=== PATIENT | female | born 1980 | race Caucasian/White ===

== ENCOUNTER → 2022-10-29 | Outpatient (CLI) | payer OTHER ==
[2022-10-29 14:42] VITALS: BP 119/85; PULSE 87; TEMP 98.4; BMI 41.1
--- NOTE | 2022-10-29 15:19 | P.HPBAR ---
Bariatric H&P - History & Physicial H&P Date: 10/29/22 History & Physicial: Visit/CC: new patient Patient initial contact: Initial weight: Initial weight in pounds: Height: 5 ft 7 in Initial BMI: Last weight: Current weight: 119.023 kg Current weight in pounds: 262.40 Current BMI: 41.1 Ward body weight (based on NIH guidelines): 61.235 kg Excess body weight loss: The patient is a 42 year-old F who presents for Bariatric Assessment. Looking into the gastric bypass. BLoodwork. She does smoke. She is getting the patches. Needs urine nicotine testing. SHe has meridian. SHe has diabetes and sever reflux. Smloking. Corhns disase or colitis. She did meet her britvaleria family. Investigagte for reflux with upper scope. She has sleep apnea and needs testing. Chest xray and needs sleep apnea assessment. She did not get asessment. Needs labs. Risks fo surgery reviewed. SHe is adopted. She has chronic pain. DJD. She sees a pain specialits. Past Medical History Past Medical History: Asthma, Cancer, GERD/Reflux, Hyperlipidemia Additional Past Medical History / Comment(s): fibromyalgia, DDD, IBS, "pre- diabetic", basal cell ca, no meds for cholesterol History of Any Multi-Drug Resistant Organisms: None Reported Past Surgical History: Section, Cholecystectomy, Hysterectomy Additional Past Surgical History / Comment(s): sinus surgery, D&C Past Anesthesia/Blood Transfusion Reactions: Postoperative Nausea & Vomiting (PONV) Additional Past Anesthesia/Blood Transfusion Reaction / Comm: PONV with first surgery age 12, no problems since Past Psychological History: Anxiety, Bipolar, Depression Smoking Status: Current every day smoker Past Alcohol Use History: Occasional Past Drug Use History: None Reported Surgical - Exam Vital Signs Temp Pulse BP 98.4 F 87 119/85 10/29/22 14:31 10/29/22 14:31 10/29/22 14:31 Bariatric Checklist Checklist: Plan: Checklist: EGD: 1. Hiatal hernia: 2. H. Pylori: HgbA1c: Vitamin D: Smoking: Former smoker Primary care physician referral: Kaur Peña NP Psychiatry clearance: Cardiology clearance: Sleep study: Diet journal: VTE risk score: VTE risk level: Rehab needs at discharge:
== END ==
LOC: BARWHC3 14:00
PROVIDERS: ATTEND Surgery Plastic and Reconstructive Surgery
DX: Z53.9 Procedure and treatment not carried out, unspecified reason (principal)
CPT/HCPCS: 99202

== ENCOUNTER → 2022-10-30 | Outpatient (CLI) | payer OTHER ==
[2022-10-30 17:14] LABS: INR 0.9 (<1.2); Partial Thromboplastin Time 25.1 sec (22.0-30.0); Prothrombin Time 9.7 sec (9.0-12.0)
[2022-10-31 01:49] LABS: HCT 45.4 % (37.2-46.3); MCH 29.9 pg (27.0-32.0); MCV 90.4 FL (80.0-97.0); NRBC Per 100 WBC 0 X 10*3/uL (0.00-0.01); Platelet Count 305 X 10*3/uL (140-440); RBC 5.02 X 10*6/uL (4.10-5.20); RDW 14.3 % (11.5-14.5); WBC 10.47 X 10*3/uL (4.50-10.00)
[2022-10-31 02:29] LABS: Prealbumin 24.9 mg/dL (18.0-42.0)
[2022-10-31 02:51] LABS: % Iron Saturation 30.37 (12.00-45.00); ALT 29 U/L (8-44); AST 26 U/L (13-35); Albumin 4.2 d/dL (3.8-4.9); Albumin/Globulin Ratio 1.91 Ratio (1.60-3.17); Alkaline Phosphatase 66 U/L (41-126); Calcium 9.8 mg/dL (8.7-10.3); Carbon Dioxide 24.8 mmol/L (21.6-31.8); Chloride 100 mmol/L (96-109); Chol/HDL Ratio 6.19 Ratio; Ferritin 54.5 ng/mL (10.0-291.0); Globulin 2.2 d/dL (1.6-3.3); Glucose 100 mg/dL (70-110); Iron 116 UG/DL (50-170); LDL Cholesterol,Calculated 100.5 mg/dL (0.0-131.0); Phosphorus 4.2 mg/dL (2.4-5.1); Potassium 4.4 mmol/L (3.5-5.5); Sodium 137 mmol/L (135-145); Total Bilirubin 0.4 mg/dL (0.3-1.2); Total Iron Binding Capacity 382 UG/DL (228-460); Total Protein 6.4 d/dL (6.2-8.2)
== END | disposition home or self-care (01) ==
LOC: LABWHC1 15:01
PROVIDERS: ATTEND Surgery Plastic and Reconstructive Surgery
DX: E66.01 Morbid (severe) obesity due to excess calories (principal); E89.1 Postprocedural hypoinsulinemia; D50.8 Other iron deficiency anemias; K91.2 Postsurgical malabsorption, not elsewhere classified; E44.0 Moderate protein-calorie malnutrition; E44.1 Mild protein-calorie malnutrition; E45 Retarded development following protein-calorie malnutrition; E46 Unspecified protein-calorie malnutrition; E55.9 Vitamin D deficiency, unspecified; K74.1 Hepatic sclerosis; N19 Unspecified kidney failure; T56.894A Toxic effect of other metals, undetermined, initial encounter; K50.90 Crohn's disease, unspecified, without complications; Z71.51 Drug abuse counseling and surveillance of drug abuser
CPT/HCPCS: 84255; 84134; 84425; 80061; 80053; 82607; 82728; 82525; 82746; 83540; 83550; 83735; 84100; 84443; 84590; 84630; 85027; 85610; 85730; 82306; 83970; 83036; 80307; 93005; 36415; G0480; 80323

== ENCOUNTER → 2022-12-12 | Outpatient (CLI) | payer OTHER ==
[2022-12-16 11:18] LABS: Vit B1(Thiamine) 70 ug/L (38-122)
== END | disposition home or self-care (01) ==
LOC: LABWHC1 16:10
PROVIDERS: ATTEND Surgery Plastic and Reconstructive Surgery
DX: E66.01 Morbid (severe) obesity due to excess calories (principal); K74.1 Hepatic sclerosis; N19 Unspecified kidney failure; T56.894A Toxic effect of other metals, undetermined, initial encounter; K50.90 Crohn's disease, unspecified, without complications; K90.9 Intestinal malabsorption, unspecified
CPT/HCPCS: 36415; 82525; 84255; 84425; 84590; 84630

== ENCOUNTER 2023-01-12 07:20 | Day surgery (SDC) | payer OTHER ==
[2023-01-09 08:48] VITALS: BMI 40.1
--- NOTE | 2023-01-12 06:46 | P.GSHP ---
History of Present Illness H&P Date: 01/12/23 CHIEF COMPLAINT: GERD HISTORY OF PRESENT ILLNESS: The patient is a 42-year-old female who presents reports gastroesophageal reflux disease. Upper endoscopy was offered for further evaluation and management. PAST MEDICAL HISTORY: Please see list. PAST SURGICAL HISTORY: Please see list. MEDICATIONS: Please see list. ALLERGIES: Please see list. SOCIAL HISTORY: No illicit drug use FAMILY HISTORY: No reports of Crohn disease or ulcerative colitis. REVIEW OF ORGAN SYSTEMS: CONSTITUTIONAL: No reports of fevers or chills. GI: Denies any blood in stools or constipation. PHYSICAL EXAM: VITAL SIGNS: Stable GENERAL: Well-developed and pleasant in no acute distress. HEENT: No scleral icterus. Extraocular movements grossly intact. Moist buccal mucosa. NECK: Supple without lymphadenopathy. CHEST: Unlabored respirations. Equal bilateral excursions. CARDIOVASCULAR: Regular rate and rhythm. Distal 2+ pulses. ABDOMEN: Soft, nondistended. MUSCULOSKELETAL: No clubbing, cyanosis, or edema. ASSESSMENT: 1. Gastroesophageal reflux disease PLAN: 1. Recommend proceeding with an upper endoscopy Past Medical History Past Medical History: Asthma, Cancer, GERD/Reflux, Hyperlipidemia Additional Past Medical History / Comment(s): fibromyalgia, DDD, IBS, "pre- diabetic", basal cell ca, removed from head, no meds for cholesterol History of Any Multi-Drug Resistant Organisms: None Reported Past Surgical History: Section, Cholecystectomy, Hysterectomy Additional Past Surgical History / Comment(s): sinus surgery, D&C Past Anesthesia/Blood Transfusion Reactions: Postoperative Nausea & Vomiting (PONV) Additional Past Anesthesia/Blood Transfusion Reaction / Comment(s): PONV with first surgery age 12, no problems since. no blood transfusion Smoking Status: Current every day smoker Medications and Allergies Home Medications Medication Instructions Recorded Confirmed Type DULoxetine HCL [Cymbalta] 120 mg PO DAILY 10/22/15 01/09/23 History QUEtiapine FUMARATE [SEROquel XR] 150 mg PO HS 10/22/15 01/09/23 History Oxybutynin Chloride [oxyBUTYnin 10 mg PO DAILY 10/29/22 01/09/23 History chloride ER] Phentermine HCl [Adipex P] 15 mg PO DAILY 10/29/22 01/09/23 History Prazosin HCl [Minipress] 2 mg PO HS 10/29/22 01/09/23 History traZODone HCL [Trazodone HCl] 300 mg PO HS 10/29/22 01/09/23 History Pantoprazole [Protonix] 1 tab PO DAILY 01/09/23 01/09/23 History amantadine HCL [Amantadine] 40 mg PO DAILY 01/09/23 01/09/23 History oxyCODONE-APAP 10-325MG [Percocet 1 tab PO QID 01/09/23 01/09/23 History 10-325 mg] Allergies Allergy/AdvReac Type Severity Reaction Status Date / Time acetaminophen Allergy Nausea & Verified 01/09/23 08:20 [From Darvocet-N] Vomiting adhesive Allergy Itching Verified 01/09/23 08:20 bupropion HCl Allergy Unknown Verified 01/09/23 08:20 [From Wellbutrin] meperidine HCl [From Demerol] Allergy Rash/Hives Verified 01/09/23 08:20 propoxyphene napsylate Allergy Nausea & Verified 01/09/23 08:20 [From Darvocet-N] Vomiting iodine AdvReac Rash/Hives Verified 01/09/23 08:21 metformin AdvReac Nausea & Verified 01/09/23 08:20 Vomiting & Diarrhea
[~2023-01-12 07:20] MED LIST: LACTATED RINGERS 1,000 ML IV SCH; LIDOCAINE 1% (10MG/ML) FOR IV START INTRADERMA PRN
[2023-01-12 07:46] VITALS: RESP 16; TEMP 97
[2023-01-12] MEDS ORDERED: LACTATED RINGERS 1,000 ML IV ONE ×2 (07:46)
[2023-01-12 07:48] LABS: Glucose,Whole Blood 144 mg/dL (70-110)
[2023-01-12] MEDS ORDERED: PROPOFOL 10 MG/ML 20 ML VIAL IV ONE (08:14)
[2023-01-12] MEDS ORDERED: LIDOCAINE 1% INJ 10MG/ML (20 ML MDV) ONE (08:14)
--- NOTE | 2023-01-12 08:33 | P.PCN ---
Date of Procedure: 01/12/23 Description of Procedure: PREOPERATIVE DIAGNOSIS: Gastroesophageal reflux disease. Morbid obesity. POSTOPERATIVE DIAGNOSIS: Gastroesophageal reflux disease. Morbid obesity. Gastritis. Gastroparesis OPERATION: Esophagogastroduodenoscopy with biopsies along esophagus, antrum and duodenum SURGEON: Jesenia Peacock MD ANESTHESIA: MAC. INDICATIONS: The patient is a 42-year-old female who presents with reflux disease. Benefits and risks of the procedure were described. Informed consent was obtained. DESCRIPTION: The patient was brought into the endoscopy suite and laid in the left lateral decubitus position. An Olympus gastroscope was passed along the posterior oropharynx down to the distal esophagus where the squamocolumnar junction was encountered at 43 cm from the incisors. The stomach was entered and no bile reflux was found. Additional findings are listed below. Biopsies with cold forc eps were obtained of the antrum. The first through third portion of the duodenum was examined. Retroflexion of the scope confirmed moderate retained food prohibiting assessment of Hill grade. The squamocolumnar junction demonstrated LA grade B erosive esophagitis. The stomach was desufflated. The patient tolerated the procedure well. FINDINGS: Squamocolumnar junction 43 cm from the incisors. Diaphragmatic hiatus at 43 cm. Hill grade -- lower esophageal valve, unable to obtain due to moderate gastroparesis LA grade B erosive esophagitis . Biopsies obtained Biopsies obtained of the duodenum. Chronic gastritis with biopsies obtained. RECOMMENDATIONS: Will need repeat upper endoscopy due to severe gastroparesis Plan - Discharge Summary Discharge Rx Participant: No New Discharge Prescriptions: Continue DULoxetine HCL [Cymbalta] 120 mg PO DAILY QUEtiapine FUMARATE [SEROquel XR] 150 mg PO HS traZODone HCL 300 mg PO HS Phentermine HCl [Adipex P] 15 mg PO DAILY oxyCODONE-APAP 10-325MG [Percocet 10-325 mg] 1 tab PO QID Pantoprazole [Protonix] 1 tab PO DAILY Prazosin HCl [Minipress] 2 mg PO HS Oxybutynin Chloride [oxyBUTYnin chloride ER] 10 mg PO DAILY amantadine HCL [Amantadine] 40 mg PO DAILY Discharge Medication List DULoxetine HCL [Cymbalta] 120 mg PO DAILY 10/22/15 [History] QUEtiapine FUMARATE [SEROquel XR] 150 mg PO HS 10/22/15 [History] Oxybutynin Chloride [oxyBUTYnin chloride ER] 10 mg PO DAILY 10/29/22 [History] Phentermine HCl [Adipex P] 15 mg PO DAILY 10/29/22 [History] Prazosin HCl [Minipress] 2 mg PO HS 10/29/22 [History] traZODone HCL 300 mg PO HS 10/29/22 [History] Pantoprazole [Protonix] 1 tab PO DAILY 01/09/23 [History] amantadine HCL [Amantadine] 40 mg PO DAILY 01/09/23 [History] oxyCODONE-APAP 10-325MG [Percocet 10-325 mg] 1 tab PO QID 01/09/23 [History] Follow up Appointment(s)/Referral(s): Jesenia Peacock MD [STAFF PHYSICIAN] - 01/28/23 Patient Instructions/Handouts: Gastroparesis (ED), Gastritis (DC) Discharge Disposition: HOME SELF-CARE
[2023-01-12 09:00] VITALS: BP 110/62; PULSE 87
== END 2023-01-12 08:58 | disposition home or self-care (01) ==
LOC: ORWHC2ENDO 07:20
PROVIDERS: ATTEND Surgery Plastic and Reconstructive Surgery
DX: K29.50 Unspecified chronic gastritis without bleeding (principal); K21.9 Gastro-esophageal reflux disease without esophagitis; E66.01 Morbid (severe) obesity due to excess calories; K31.84 Gastroparesis; J45.909 Unspecified asthma, uncomplicated; E78.5 Hyperlipidemia, unspecified; M79.7 Fibromyalgia; K58.9 Irritable bowel syndrome, unspecified; E11.43 Type 2 diabetes mellitus with diabetic autonomic (poly)neuropathy; F32.A Depression, unspecified; F41.9 Anxiety disorder, unspecified; F17.200 Nicotine dependence, unspecified, uncomplicated; Z90.49 Acquired absence of other specified parts of digestive tract; Z90.710 Acquired absence of both cervix and uterus; Z88.6 Allergy status to analgesic agent; Z88.5 Allergy status to narcotic agent; Z88.8 Allergy status to other drugs, medicaments and biological substances; Z91.041 Radiographic dye allergy status; Z91.048 Other nonmedicinal substance allergy status
CPT/HCPCS: 88305; 43239; J2001; J2704